=== PATIENT | female | born 1995 | race Two or more races ===

== ENCOUNTER 2021-10-02 14:36 | Emergency (ER) | payer SELFPAY ==
[~2021-10-02] VITALS: Ht 157.5 cm; Wt 52.2 kg
--- NOTE | 2021-10-02 14:49 | NUR ---
PT IS IN ROOM #2B. DR CHAVEZ EVALUATED THE PT.
[2021-10-02] MEDS ORDERED: KETOROLAC TROMETHAMINE 30 MG INJ IM ONE (15:00)
[2021-10-02] MEDS ORDERED: KETOROLAC TROMETHAMINE 30 MG INJ ONE (15:13)
[2021-10-02 15:27] LABS: *URINE HCG, QUAL NEGATIVE (NEGATIVE)
[2021-10-02] MEDS ORDERED: METOCLOPRAMIDE HCL 10 MG/2 ML VIAL IM ONE (16:15)
[2021-10-02] MEDS ORDERED: diphenhydrAMINE 50 MG/1 ML VIAL IM ONE (16:15)
[2021-10-02] MEDS ORDERED: diphenhydrAMINE 50 MG/1 ML VIAL ONE (16:33)
[2021-10-02] MEDS ORDERED: METOCLOPRAMIDE HCL 10 MG/2 ML VIAL ONE (16:34)
[2021-10-02] MEDS ORDERED: IBUP-1955 PO (16:53)
--- NOTE | 2021-10-02 17:14 | NUR ---
PT WAS D/C'd TO HOME. D/C INSTRUCTIONS GIVEN TO THE PT BY DR CHAVEZ.
[2021-10-02 17:15] VITALS: BP 125/69
== END 2021-10-02 17:17 | disposition home or self-care (01) ==
LOC: ER 14:36
DX: S09.90XA Unspecified injury of head, initial encounter (principal); S33.5XXA Sprain of ligaments of lumbar spine, initial encounter; S13.9XXA Sprain of joints and ligaments of unspecified parts of neck, initial encounter; V49.49XA Driver injured in collision with other motor vehicles in traffic accident, initial encounter; Y92.411 Interstate highway as the place of occurrence of the external cause
CPT/HCPCS: 72040; 72100; 84703; 96372 ×2; 99284; J1200; J1885; J2765; A4663